=== PATIENT | female | born 1980 | race Caucasian/White ===

== ENCOUNTER 2017-05-22 13:52 | Emergency (ER) | payer MEDICAID ==
[~2017-05-22] VITALS: Wt 52.1 kg
[2017-05-22] MEDS ORDERED: ONDANSETRON (ODT) 4 MG TAB ODT STA (14:39)
[2017-05-22] MEDS ORDERED: ACET325T33 PO (14:44)
[2017-05-22] MEDS ORDERED: ONDA4TAB14 PO (14:44)
[2017-05-22] MEDS ORDERED: CEPH-443 PO (16:00)
[2017-05-22] MEDS ORDERED: CEFTRIAXONE 1 GM INJ IM STA (16:01)
--- NOTE | 2017-05-22 19:23 | ERD ---
ER Documentation Chief Complaint Chief Complaint NAUSEA, VOMITING, DIARRHEA, ONSET 5 DAYS HPI 36-year-old female presents to the emergency department complaining of nausea and bilious nonbloody vomiting diarrhea for the past 5 days. Patient admits to having suprapubic pain with dysuria for a day. She denies any fevers. Denies any medications for this. ROS All systems reviewed and are negative except as per history of present illness. Medications Home Meds Active Scripts Cephalexin* (Keflex*) 500 Mg Capsule, 500 MG PO TID for 10 Days, CAP Prov:MAGDIEL OLMOS PA-C 05/22/17 Acetaminophen* (Tylenol*) 325 Mg Tablet, 2 TAB PO Q6 Y for PAIN AND OR ELEVATED TEMP, #20 TAB Prov:MAGDIEL OLMOS PA-C 05/22/17 Ondansetron (Ondansetron Odt) 4 Mg Tab.rapdis, 4 MG PO Q6H Y for NAUSEA AND/OR VOMITING, #20 TAB Prov:MAGDIEL OLMOS PA-C 05/22/17 PMhx/Soc History of Surgery: No Anesthesia Reaction: No Hx Neurological Disorder: No Hx Respiratory Disorders: No Hx Cardiac Disorders: No Hx Psychiatric Problems: No Hx Miscellaneous Medical Probl: No Hx Alcohol Use: No Hx Substance Use: No Hx Tobacco Use: Yes Smoking Status: Current every day smoker Physical Exam Vitals Vital Signs Date Time Temp Pulse Resp B/P Pulse Ox O2 Delivery O2 Flow Rate FiO2 05/22/17 13:57 97.9 98 18 123/68 98 Physical Exam GENERAL: well-developed/well-nourished, in no apparent distress, non-toxic appearing HENT: NC/AT, moist mucous membranes EYES: Conjunctiva normal NECK: Supple, no lymphadenopathy PULM: CTA bilaterally, no rales, rhonchi, or wheezing heard CV: Normal S1S2, RRR, good capillary refill GI: Soft, non-distended, tender to palpation suprapubic region Normal bowel sounds, no masses or organomegaly felt on exam No gross peritonitis, no bruits Negative Rovsing, negative Alex, negative McBurney's point, Negative CVAT BACK: No masses EXT: No clubbing, cyanosis, or edema NEURO: Alert and Orientated SKIN: Intact, normal turgor PSYCH: Normal mood and mentation Results 24 hrs Laboratory Tests Test 05/22/17 15:25 Urine Color YELLOW Urine Clarity CLOUDY Urine pH 6.0 Urine Specific [place] 1.021 Urine Ketones NEGATIVEmg/dL Urine Nitrite NEGATIVEmg/dL Urine Bilirubin NEGATIVEmg/dL Urine Urobilinogen 1+mg/dL Urine Leukocyte Esterase 3+Supa/ul Urine Microscopic RBC 89/HPF Urine Microscopic WBC > 182/HPF Urine Squamous Epithelial Cells FEW/HPF Urine Bacteria FEW/HPF Urine Mucus FEW/HPF Urine Hemoglobin 2+mg/dL Urine Glucose NEGATIVEmg/dL Urine Total Protein 1+mg/dl Current Medications Medications (Trade) Dose Ordered Sig/Kevan Route PRN Reason Start Time Stop Time Status Last Admin Dose Admin Ondansetron HCl (Zofran Odt) 8 mg ONCE STAT ODT 05/22/17 14:39 05/22/17 14:40 DC 05/22/17 15:48 Ceftriaxone Sodium (Rocephin) 1 gm ONCE STAT IM 05/22/17 16:01 05/22/17 16:02 DC 05/22/17 16:17 Procedures/MDM 36-year-old female presents emergency department with nausea vomiting diarrhea for the past 5 days, low suspicion for acute abdomen. Patient appears well she does not seem to be in significant pain and has stable vital signs. Patient is also complaining of dysuria likely due to a urinary tract infection. Urinalysis showed evidence of infection. There is no evidence of nephrolithiasis or pyelonephritis. Patient stable to be discharged home with prescription for Keflex. Instructions to return to the ER for any worsening symptoms. Patient understanding to this plan Departure Diagnosis: Primary Impression: Nausea, vomiting, and diarrhea Additional Impression: UTI (urinary tract infection) Condition: Stable Patient Instructions: Nausea and Vomiting-Adult, Diet, Vomiting Or Diarrhea [ 6Yr-Adult], Vomiting And Diarrhea, Nonspecific (Adult) Referrals: NO PRIMARY,CARE PHYSICIAN (PCP) Additional Instructions: Visite a otoole glenna finney para un EXAMEN.Regrese a estas instalaciones si no se mejora tyson esperbamos o tyson le dijimos. [place] toda la medicina sandip y tyson se le indic. Regrese a estas instalaciones si no se mejora tyson esperbamos o tyson le dijimos. BASHARDOUST,NUSHA N. PA-C May 22, 2017 19:23
== END 2017-05-22 16:19 | disposition home or self-care (01) ==
LOC: FTE 13:52
DX: N39.0 Urinary tract infection, site not specified (principal); R19.7 Diarrhea, unspecified; F17.210 Nicotine dependence, cigarettes, uncomplicated
CPT/HCPCS: 81001; 96372; J0696; Z7502; Z7610